=== PATIENT | female | born 1985 | race Caucasian/White ===

== ENCOUNTER 2020-07-09 14:19 | Inpatient (IN) | payer BC, OTHER ==
[~2020-07-09] VITALS: Ht 149.9 cm; Wt 72.6 kg
[2020-07-09 15:10] LABS: RED BLOOD COUNT 5.01 M/UL (4.00-5.10); WHITE BLOOD COUNT 17.2 K/UL (4.5-11.0)
[2020-07-09 15:51] LABS: BUN/CREATININE RATIO 22 (0-10)
[2020-07-09] MEDS ORDERED: METFORMIN HCL750 MG PO (17:52)
[2020-07-09] MEDS ORDERED: COZAAR25 MG PO (17:52)
[2020-07-09] MEDS ORDERED: JARDIANCE10 MG PO (17:53)
[2020-07-10 06:56] LABS: RED BLOOD COUNT 4.71 M/UL (4.00-5.10); WHITE BLOOD COUNT 13.6 K/UL (4.5-11.0)
[2020-07-10 07:51] LABS: BUN/CREATININE RATIO 25 (0-10)
[2020-07-11 02:37] LABS: HEMOGLOBIN 12.9 gm/dl (12.3-15.3); RED BLOOD COUNT 4.37 M/UL (4.00-5.10); WHITE BLOOD COUNT 12.5 K/UL (4.5-11.0)
[2020-07-11 03:37] LABS: BUN/CREATININE RATIO 31 (0-10)
[2020-07-13] MEDS ORDERED: PLAVIX75 MG PO (15:17)
[2020-07-13] MEDS ORDERED: NITROGLYCERIN0.4 MG SL (15:18)
[2020-07-13] MEDS ORDERED: COREG6.25 MG PO (15:18)
[2020-07-13] MEDS ORDERED: LIPITOR40 MG PO (15:19)
[2020-07-13] MEDS ORDERED: ADULT LOW DOSE81 MG PO (15:20)
[2020-07-13] MEDS ORDERED: COZAAR25 MG PO (15:20)
== END 2020-07-13 16:03 | disposition home or self-care (01) | DRG 247 ==
LOC: ER1 14:19 → CDU 15:41 → CCU 15:41 → PROG CARE 07-10 17:26
PROVIDERS: Nurse Practitioner; ADMIT Internal Medicine Interventional Cardiology
PROC: 4A023N7 Measurement of Cardiac Sampling and Pressure, Left Heart, Percutaneous Approach (ICD-10-PCS; principal; 2020-07-09)
PROC: 027035Z Dilation of Coronary Artery, One Artery with Two Drug-eluting Intraluminal Devices, Percutaneous Approach (ICD-10-PCS; 2020-07-09)
PROC: B215YZZ Fluoroscopy of Left Heart using Other Contrast (ICD-10-PCS; 2020-07-09)
PROC: B211YZZ Fluoroscopy of Multiple Coronary Arteries using Other Contrast (ICD-10-PCS; 2020-07-09)
PROC: B41FYZZ Fluoroscopy of Right Lower Extremity Arteries using Other Contrast (ICD-10-PCS; 2020-07-09)
DX: I21.09 ST elevation (STEMI) myocardial infarction involving other coronary artery of anterior wall (principal); E11.9 Type 2 diabetes mellitus without complications; E66.9 Obesity, unspecified; I10 Essential (primary) hypertension; Z82.49 Family history of ischemic heart disease and other diseases of the circulatory system; I25.5 Ischemic cardiomyopathy; E78.5 Hyperlipidemia, unspecified; Z79.4 Long term (current) use of insulin; Z20.822 Contact with and (suspected) exposure to COVID-19; Z68.32 Body mass index [BMI] 32.0-32.9, adult
CPT/HCPCS: 36415; 71045; 80048; 80053; 81001; 82550; 82553; 82962; 83036; 83735; 83874; 84439; 84443; 84484; 84703; 85025; 85027; 85347; 85379; 85610; 85730; 87635; 93005; 96374; 96375; 96376; 99152; 99153; 99284; C1725; C1760; C1769; C1874; C9600; J0461; J1644; J1885; J2250; J2405; J3010; J7040; Q9965

== ENCOUNTER → 2020-10-01 | Outpatient (CLI) | payer BC, OTHER ==
[~2020-10-01] MED LIST: ADULT LOW DOSE81 MG PO; COREG6.25 MG PO; COZAAR25 MG PO; JARDIANCE10 MG PO; LIPITOR40 MG PO; METFORMIN HCL750 MG PO; NITROGLYCERIN0.4 MG SL; PLAVIX75 MG PO
== END ==
LOC: HEART 5 10:30
DX: I21.9 Acute myocardial infarction, unspecified (principal); I25.10 Atherosclerotic heart disease of native coronary artery without angina pectoris; I25.5 Ischemic cardiomyopathy
CPT/HCPCS: 93306

== ENCOUNTER → 2021-05-31 | Outpatient (CLI) | payer BC | LOC: CARD REHAB 14:00 | DX: Z48.812 Encounter for surgical aftercare following surgery on the circulatory system (principal); I21.09 ST elevation (STEMI) myocardial infarction involving other coronary artery of anterior wall; Z95.1 Presence of aortocoronary bypass graft | CPT/HCPCS: 93798 ==